=== PATIENT | female | born 1990 | race Caucasian/White ===

== ENCOUNTER 2021-03-03 15:43 | Inpatient (IN) | payer MEDICARE, OTHER ==
[~2021-03-03] VITALS: Ht 165.1 cm; Wt 89.4 kg
[2021-03-03 18:50] VITALS: BP 106/65
[2021-03-03] MEDS ORDERED: ALBUTEROL SULFATE 2.5 MG/0.5 ML NEB SOLUTION NEB PRN (19:45)
[2021-03-03] MEDS ORDERED: IPRATROPIUM BROMIDE 0.5 MG/2.5 ML NEB SOLUTION NEB PRN (19:45)
[2021-03-03] MEDS: SENNA 187 MG TABLET PO SCH (21:00)
[2021-03-03] MEDS ORDERED: FORMOTEROL FUMARATE IH SCH (21:00)
[2021-03-03] MEDS: DOCUSATE SODIUM 250 MG CAPSULE PO SCH (21:00)
[2021-03-03] MEDS: OxyCODONE HCL 10 MG IR TABLET PO PRN (21:03)
[2021-03-03] MEDS: GuaiFENesin SR 600 MG ER TABLET PO SCH (21:16)
[2021-03-03] MEDS: GABAPENTIN 300 MG CAPSULE PO SCH (21:16)
[2021-03-03] MEDS: ALBUTEROL SULFATE 2.5 MG/0.5 ML NEB SOLUTION NEB SCH (21:35)
[2021-03-03] MEDS: IPRATROPIUM BROMIDE 0.5 MG/2.5 ML NEB SOLUTION NEB SCH (21:35)
[2021-03-03 21:42] VITALS: BP 106/65
[2021-03-03 21:53] LABS: COVID AG,FIA SOURCE NASAL SWAB
[2021-03-03] MEDS: ACETAMINOPHEN 500 MG TABLET PO SCH (23:17)
[2021-03-03] MEDS: HEPARIN SODIUM,PORCINE 5,000 UNITS/ML VIAL SQ SCH (23:18)
[2021-03-04] VITALS: BP 124/66
[2021-03-04] MEDS ORDERED: PNEUMOCOCCAL VACCINE POLYVALENT 0.5 ML VIAL [PPSV23] IM. ONE (00:30)
[2021-03-04] MEDS: IPRATROPIUM BROMIDE 0.5 MG/2.5 ML NEB SOLUTION NEB SCH ×4 (01:58→20:04)
[2021-03-04] MEDS: ALBUTEROL SULFATE 2.5 MG/0.5 ML NEB SOLUTION NEB SCH ×4 (01:58→20:05)
[2021-03-04] MEDS: OxyCODONE HCL 10 MG IR TABLET PO PRN ×3 (04:56→16:25)
[2021-03-04] MEDS: ACETAMINOPHEN 500 MG TABLET PO SCH ×4 (05:50→23:33)
[2021-03-04 06:42] LABS: BASOPHILS % (AUTO) 0.1 % (0.0-2.0); EOSINOPHILS % (AUTO) 0.4 % (1.0-6.0); HEMATOCRIT 33.1 % (36-46); HEMOGLOBIN 10.6 g/dL (12.0-16.0); LYMPHOCYTES # (AUTO) 2.3 K/uL (1.0-4.8); LYMPHOCYTES % (AUTO) 17.4 % (22.0-44.0); MEAN CORPUSCULAR HEMOGLOBIN 26.3 pg (26.0-34.0); MEAN CORPUSCULAR HGB CONC 31.9 G/dL (31.0-37.0); MEAN CORPUSCULAR VOLUME 83 fL (80-100); MONOCYTES # (AUTO) 0.9 K/uL (0.1-1.0); MONOCYTES % (AUTO) 6.9 % (2.0-9.0); NEUTROPHILS # (AUTO) 10.2 K/uL (1.8-7.7); NEUTROPHILS % (AUTO) 75.2 % (40.0-70.0); PLATELET COUNT (AUTO) 322 K/uL (150-450); RED BLOOD CELL COUNT(AUTO) 4.01 MIL/uL (4.00-5.20); RED CELL DISTRIBUTION WIDTH 15.5 % (11.5-14.5)
[2021-03-04 06:54] LABS: ALANINE AMINOTRANSFERASE 28 U/L (12-78); ALBUMIN 2.7 g/dL (3.4-5.0); ALKALINE PHOSPHATASE 106 U/L (46-116); ANION GAP 7 mmol/L (8-16); ASPARTATE AMINOTRANSFERASE 18 U/L (15-37); BILIRUBIN,TOTAL 0.4 mg/dL (0.1-1.0); CALCIUM, TOTAL 8.6 mg/dL (8.8-10.5); CARBON DIOXIDE 26 mmol/L (22-29); CHLORIDE 102 mmol/L (98-107); CREATININE 0.52 mg/dL (0.60-1.30); GLOMERULAR FILTR. RATE CALC > 60 mL/min (>60); GLUCOSE,RANDOM 101 mg/dL (70-110); POTASSIUM 4.3 mmol/L (3.5-5.1); SODIUM SERUM 135 mmol/L (136-145); TOTAL PROTEIN, SERUM 6.8 g/dL (6.4-8.2); UREA NITROGEN, BLOOD 14 mg/dL (7-18)
[2021-03-04 08:00] VITALS: BP 112/56
[2021-03-04] MEDS: GABAPENTIN 300 MG CAPSULE PO SCH ×3 (08:42→21:23)
[2021-03-04] MEDS: DOCUSATE SODIUM 250 MG CAPSULE PO SCH ×3 (08:42→21:23)
[2021-03-04] MEDS: MONTELUKAST SODIUM 10 MG TABLET PO SCH (08:42)
[2021-03-04] MEDS: GuaiFENesin SR 600 MG ER TABLET PO SCH ×2 (08:42→21:23)
[2021-03-04] MEDS: HEPARIN SODIUM,PORCINE 5,000 UNITS/ML VIAL SQ SCH ×3 (08:43→23:33)
[2021-03-04] MEDS: IBUPROFEN 600 MG TABLET PO PRN (08:53)
[2021-03-04] MEDS ORDERED: CefTRIAXone SODIUM 1 GM/VIAL IM SCH (09:00)
[2021-03-04] MEDS ORDERED: PredniSONE 20 MG TABLET PO SCH (09:00)
[2021-03-04] MEDS ORDERED: LIDOCAINE/PF 1% 2 ML VIAL IM SCH (09:00)
[2021-03-04 16:01] VITALS: BP 107/61
[2021-03-04] MEDS: SENNA 187 MG TABLET PO SCH (21:23)
[2021-03-05] VITALS: BP 108/65
[2021-03-05] MEDS: IPRATROPIUM BROMIDE 0.5 MG/2.5 ML NEB SOLUTION NEB SCH ×4 (02:02→20:50)
[2021-03-05] MEDS: ALBUTEROL SULFATE 2.5 MG/0.5 ML NEB SOLUTION NEB SCH ×4 (02:03→20:50)
[2021-03-05] MEDS: OxyCODONE HCL 10 MG IR TABLET PO PRN ×2 (04:03→09:31)
[2021-03-05] MEDS: ACETAMINOPHEN 500 MG TABLET PO SCH ×3 (05:50→19:16)
[2021-03-05 07:08] VITALS: BP 126/66
[2021-03-05] MEDS: GuaiFENesin SR 600 MG ER TABLET PO SCH ×2 (08:24→20:38)
[2021-03-05] MEDS: DOCUSATE SODIUM 250 MG CAPSULE PO SCH ×2 (08:24→20:38)
[2021-03-05] MEDS: MONTELUKAST SODIUM 10 MG TABLET PO SCH (08:24)
[2021-03-05] MEDS: GABAPENTIN 300 MG CAPSULE PO SCH ×3 (08:24→20:38)
[2021-03-05] MEDS: PredniSONE 5 MG TABLET PO SCH (08:25)
[2021-03-05] MEDS: HEPARIN SODIUM,PORCINE 5,000 UNITS/ML VIAL SQ SCH ×2 (08:25→15:36)
[2021-03-05] MEDS: LIDOCAINE 5% TRANSDERMAL PATCH TD SCH (12:08)
[2021-03-05 16:01] VITALS: BP 113/72
[2021-03-05] MEDS: SENNA 187 MG TABLET PO SCH (20:38)
[2021-03-05] MEDS: -LIDODERM PATCH NOTE- MISC SCH (20:38)
[2021-03-06] MEDS: MELATONIN 5 MG TABLET PO PRN (00:23)
[2021-03-06] MEDS: ACETAMINOPHEN 500 MG TABLET PO SCH ×4 (00:23→21:07)
[2021-03-06] MEDS: HEPARIN SODIUM,PORCINE 5,000 UNITS/ML VIAL SQ SCH ×4 (00:23→23:28)
[2021-03-06 00:48] VITALS: BP 109/67
[2021-03-06] MEDS: ALBUTEROL SULFATE 2.5 MG/0.5 ML NEB SOLUTION NEB SCH ×4 (02:12→19:58)
[2021-03-06] MEDS: IPRATROPIUM BROMIDE 0.5 MG/2.5 ML NEB SOLUTION NEB SCH ×4 (02:12→19:57)
[2021-03-06] MEDS: OxyCODONE HCL 10 MG IR TABLET PO PRN ×3 (07:24→17:35)
[2021-03-06] MEDS: DOCUSATE SODIUM 250 MG CAPSULE PO SCH ×2 (08:00→21:06)
[2021-03-06] MEDS: GuaiFENesin SR 600 MG ER TABLET PO SCH ×2 (08:01→21:06)
[2021-03-06] MEDS: MONTELUKAST SODIUM 10 MG TABLET PO SCH (08:01)
[2021-03-06] MEDS: GABAPENTIN 300 MG CAPSULE PO SCH ×3 (08:01→21:07)
[2021-03-06] MEDS: LIDOCAINE 5% TRANSDERMAL PATCH TD SCH (08:02)
[2021-03-06] MEDS: PredniSONE 5 MG TABLET PO SCH (08:03)
[2021-03-06 08:55] VITALS: BP 101/63
[2021-03-06 20:04] VITALS: BP 107/59
[2021-03-06] MEDS: -LIDODERM PATCH NOTE- MISC SCH (21:07)
[2021-03-06] MEDS: SENNA 187 MG TABLET PO SCH (21:07)
[2021-03-07] VITALS: BP 103/77
[2021-03-07] MEDS: ACETAMINOPHEN 500 MG TABLET PO SCH ×4 (00:29→18:16)
[2021-03-07] MEDS: ALBUTEROL SULFATE 2.5 MG/0.5 ML NEB SOLUTION NEB SCH ×4 (02:14→20:29)
[2021-03-07] MEDS: IPRATROPIUM BROMIDE 0.5 MG/2.5 ML NEB SOLUTION NEB SCH ×4 (02:14→20:29)
[2021-03-07] MEDS: OxyCODONE HCL 10 MG IR TABLET PO PRN (05:28)
[2021-03-07 06:46] LABS: BASOPHILS % (AUTO) 0.4 % (0.0-2.0); EOSINOPHILS % (AUTO) 3.9 % (1.0-6.0); HEMATOCRIT 33.1 % (36-46); HEMOGLOBIN 10.3 g/dL (12.0-16.0); LYMPHOCYTES # (AUTO) 3.7 K/uL (1.0-4.8); LYMPHOCYTES % (AUTO) 29.7 % (22.0-44.0); MEAN CORPUSCULAR HEMOGLOBIN 25.8 pg (26.0-34.0); MEAN CORPUSCULAR VOLUME 83 fL (80-100); MONOCYTES # (AUTO) 0.6 K/uL (0.1-1.0); MONOCYTES % (AUTO) 5.1 % (2.0-9.0); NEUTROPHILS # (AUTO) 7.6 K/uL (1.8-7.7); NEUTROPHILS % (AUTO) 60.9 % (40.0-70.0); PLATELET COUNT (AUTO) 367 K/uL (150-450); RED BLOOD CELL COUNT(AUTO) 3.97 MIL/uL (4.00-5.20); RED CELL DISTRIBUTION WIDTH 15.4 % (11.5-14.5)
[2021-03-07 06:56] LABS: ANION GAP 5 mmol/L (8-16); CALCIUM, TOTAL 8.3 mg/dL (8.8-10.5); CARBON DIOXIDE 27 mmol/L (22-29); CHLORIDE 103 mmol/L (98-107); CREATININE 0.52 mg/dL (0.60-1.30); GLOMERULAR FILTR. RATE CALC > 60 mL/min (>60); GLUCOSE,RANDOM 87 mg/dL (70-110); POTASSIUM 4.1 mmol/L (3.5-5.1); SODIUM SERUM 135 mmol/L (136-145); UREA NITROGEN, BLOOD 17 mg/dL (7-18)
[2021-03-07 07:41] VITALS: BP 107/55
[2021-03-07] MEDS: GuaiFENesin SR 600 MG ER TABLET PO SCH ×2 (07:55→20:59)
[2021-03-07] MEDS: LIDOCAINE 5% TRANSDERMAL PATCH TD SCH (07:55)
[2021-03-07] MEDS: HEPARIN SODIUM,PORCINE 5,000 UNITS/ML VIAL SQ SCH ×2 (07:55→16:26)
[2021-03-07] MEDS: MONTELUKAST SODIUM 10 MG TABLET PO SCH (07:55)
[2021-03-07] MEDS: DOCUSATE SODIUM 250 MG CAPSULE PO SCH ×2 (07:55→20:58)
[2021-03-07] MEDS: PredniSONE 5 MG TABLET PO SCH (07:56)
[2021-03-07] MEDS: GABAPENTIN 300 MG CAPSULE PO SCH ×3 (07:56→20:59)
[2021-03-07] MEDS: OxyCODONE HCL 10 MG ER TABLET PO SCH (12:36)
[2021-03-07 15:47] VITALS: BP 118/63
[2021-03-07] MEDS: CALCIUM CIT/VITAMIN D3 200 MG-250 UNITS TABLET PO SCH (20:58)
[2021-03-07] MEDS: FAMOTIDINE 20 MG TABLET PO SCH (20:59)
[2021-03-07] MEDS: SENNA 187 MG TABLET PO SCH (20:59)
[2021-03-07] MEDS: -LIDODERM PATCH NOTE- MISC SCH (21:02)
[2021-03-08] VITALS: BP 116/51
[2021-03-08] MEDS: HEPARIN SODIUM,PORCINE 5,000 UNITS/ML VIAL SQ SCH ×3 (00:36→15:38)
[2021-03-08] MEDS: OxyCODONE HCL 10 MG ER TABLET PO SCH ×2 (00:36→12:16)
[2021-03-08] MEDS: ACETAMINOPHEN 500 MG TABLET PO SCH ×4 (00:37→18:23)
[2021-03-08] MEDS: ALBUTEROL SULFATE 2.5 MG/0.5 ML NEB SOLUTION NEB SCH ×4 (02:27→20:08)
[2021-03-08] MEDS: IPRATROPIUM BROMIDE 0.5 MG/2.5 ML NEB SOLUTION NEB SCH ×4 (02:27→20:07)
[2021-03-08] MEDS: OxyCODONE HCL 10 MG IR TABLET PO PRN (04:43)
[2021-03-08 07:20] VITALS: BP 95/51
[2021-03-08] MEDS: LIDOCAINE 5% TRANSDERMAL PATCH TD SCH (07:44)
[2021-03-08] MEDS: DOCUSATE SODIUM 250 MG CAPSULE PO SCH ×2 (07:44→19:54)
[2021-03-08] MEDS: PredniSONE 10 MG TABLET PO SCH (07:45)
[2021-03-08] MEDS: MONTELUKAST SODIUM 10 MG TABLET PO SCH (07:45)
[2021-03-08] MEDS: CALCIUM CIT/VITAMIN D3 200 MG-250 UNITS TABLET PO SCH ×2 (07:45→19:54)
[2021-03-08] MEDS: FAMOTIDINE 20 MG TABLET PO SCH ×2 (07:45→19:54)
[2021-03-08] MEDS: GuaiFENesin SR 600 MG ER TABLET PO SCH ×2 (07:46→19:54)
[2021-03-08] MEDS: GABAPENTIN 300 MG CAPSULE PO SCH ×3 (07:46→19:54)
[2021-03-08 16:23] VITALS: BP 106/59
[2021-03-08] MEDS: SENNA 187 MG TABLET PO SCH (19:54)
[2021-03-08] MEDS: -LIDODERM PATCH NOTE- MISC SCH (21:00)
[2021-03-09 00:30] VITALS: BP 98/57
[2021-03-09] MEDS: OxyCODONE HCL 10 MG ER TABLET PO SCH ×2 (00:37→12:55)
[2021-03-09] MEDS: ACETAMINOPHEN 500 MG TABLET PO SCH ×4 (00:37→18:41)
[2021-03-09] MEDS: HEPARIN SODIUM,PORCINE 5,000 UNITS/ML VIAL SQ SCH ×3 (00:37→15:50)
[2021-03-09] MEDS: ALBUTEROL SULFATE 2.5 MG/0.5 ML NEB SOLUTION NEB SCH ×4 (02:45→19:38)
[2021-03-09] MEDS: IPRATROPIUM BROMIDE 0.5 MG/2.5 ML NEB SOLUTION NEB SCH ×4 (02:45→19:38)
[2021-03-09 07:35] VITALS: BP 95/50
[2021-03-09] MEDS: OxyCODONE HCL 5 MG IR TABLET PO PRN (07:37)
[2021-03-09] MEDS: CALCIUM CIT/VITAMIN D3 200 MG-250 UNITS TABLET PO SCH ×2 (09:02→21:16)
[2021-03-09] MEDS: DOCUSATE SODIUM 250 MG CAPSULE PO SCH ×2 (09:02→21:15)
[2021-03-09] MEDS: GuaiFENesin SR 600 MG ER TABLET PO SCH ×2 (09:03→21:16)
[2021-03-09] MEDS: GABAPENTIN 300 MG CAPSULE PO SCH ×3 (09:03→21:17)
[2021-03-09] MEDS: PredniSONE 10 MG TABLET PO SCH (09:03)
[2021-03-09] MEDS: MONTELUKAST SODIUM 10 MG TABLET PO SCH (09:04)
[2021-03-09] MEDS: LIDOCAINE 5% TRANSDERMAL PATCH TD SCH (09:05)
[2021-03-09] MEDS: FAMOTIDINE 20 MG TABLET PO SCH ×2 (09:06→21:16)
[2021-03-09 16:01] VITALS: BP 101/49
[2021-03-09] MEDS: SENNA 187 MG TABLET PO SCH (21:16)
[2021-03-09] MEDS: -LIDODERM PATCH NOTE- MISC SCH (21:17)
[2021-03-09 23:57] VITALS: BP 109/54
[2021-03-10] MEDS: HEPARIN SODIUM,PORCINE 5,000 UNITS/ML VIAL SQ SCH ×4 (00:01→23:49)
[2021-03-10] MEDS: OxyCODONE HCL 10 MG ER TABLET PO SCH ×2 (00:02→12:17)
[2021-03-10] MEDS: ACETAMINOPHEN 500 MG TABLET PO SCH ×5 (00:02→23:50)
[2021-03-10] MEDS: ALBUTEROL SULFATE 2.5 MG/0.5 ML NEB SOLUTION NEB SCH ×4 (01:52→19:30)
[2021-03-10] MEDS: IPRATROPIUM BROMIDE 0.5 MG/2.5 ML NEB SOLUTION NEB SCH ×4 (01:52→19:30)
[2021-03-10 07:25] LABS: BASOPHILS % (AUTO) 0.3 % (0.0-2.0); EOSINOPHILS % (AUTO) 4.1 % (1.0-6.0); HEMATOCRIT 34.3 % (36-46); HEMOGLOBIN 10.7 g/dL (12.0-16.0); LYMPHOCYTES # (AUTO) 3.3 K/uL (1.0-4.8); LYMPHOCYTES % (AUTO) 25.4 % (22.0-44.0); MEAN CORPUSCULAR HEMOGLOBIN 26.3 pg (26.0-34.0); MEAN CORPUSCULAR HGB CONC 31.3 G/dL (31.0-37.0); MEAN CORPUSCULAR VOLUME 84 fL (80-100); MONOCYTES # (AUTO) 0.6 K/uL (0.1-1.0); MONOCYTES % (AUTO) 4.2 % (2.0-9.0); NEUTROPHILS # (AUTO) 8.6 K/uL (1.8-7.7); PLATELET COUNT (AUTO) 484 K/uL (150-450); RED BLOOD CELL COUNT(AUTO) 4.09 MIL/uL (4.00-5.20); RED CELL DISTRIBUTION WIDTH 16.1 % (11.5-14.5)
[2021-03-10 07:50] LABS: ANION GAP 10 mmol/L (8-16); CALCIUM, TOTAL 8.9 mg/dL (8.8-10.5); CARBON DIOXIDE 29 mmol/L (22-29); CHLORIDE 103 mmol/L (98-107); CREATININE 0.61 mg/dL (0.60-1.30); GLOMERULAR FILTR. RATE CALC > 60 mL/min (>60); GLUCOSE,RANDOM 88 mg/dL (70-110); POTASSIUM 4.5 mmol/L (3.5-5.1); SODIUM SERUM 142 mmol/L (136-145); UREA NITROGEN, BLOOD 20 mg/dL (7-18)
[2021-03-10 07:58] VITALS: BP 103/58
[2021-03-10] MEDS: FAMOTIDINE 20 MG TABLET PO SCH ×2 (08:15→20:11)
[2021-03-10] MEDS: MONTELUKAST SODIUM 10 MG TABLET PO SCH (08:15)
[2021-03-10] MEDS: GABAPENTIN 300 MG CAPSULE PO SCH ×3 (08:15→20:11)
[2021-03-10] MEDS: CALCIUM CIT/VITAMIN D3 200 MG-250 UNITS TABLET PO SCH ×2 (08:16→20:10)
[2021-03-10] MEDS: GuaiFENesin SR 600 MG ER TABLET PO SCH ×2 (08:16→20:13)
[2021-03-10] MEDS: DOCUSATE SODIUM 250 MG CAPSULE PO SCH ×2 (08:16→20:11)
[2021-03-10] MEDS: PredniSONE 10 MG TABLET PO SCH (08:16)
[2021-03-10] MEDS: LIDOCAINE 5% TRANSDERMAL PATCH TD SCH (08:17)
[2021-03-10] MEDS: OxyCODONE HCL 10 MG IR TABLET PO PRN (14:01)
[2021-03-10 16:00] VITALS: BP 114/65
[2021-03-10] MEDS: SENNA 187 MG TABLET PO SCH (20:11)
[2021-03-10] MEDS: -LIDODERM PATCH NOTE- MISC SCH (21:47)
[2021-03-11] VITALS: BP 102/68
[2021-03-11] MEDS: OxyCODONE HCL 10 MG ER TABLET PO SCH ×2 (00:12→12:42)
[2021-03-11] MEDS: IPRATROPIUM BROMIDE 0.5 MG/2.5 ML NEB SOLUTION NEB SCH ×4 (02:05→19:19)
[2021-03-11] MEDS: ALBUTEROL SULFATE 2.5 MG/0.5 ML NEB SOLUTION NEB SCH ×4 (02:05→19:19)
[2021-03-11] MEDS: ACETAMINOPHEN 500 MG TABLET PO SCH ×3 (06:04→18:00)
[2021-03-11 07:27] VITALS: BP 94/54
[2021-03-11] MEDS: OxyCODONE HCL 10 MG IR TABLET PO PRN ×2 (07:39→19:56)
[2021-03-11] MEDS: CALCIUM CIT/VITAMIN D3 200 MG-250 UNITS TABLET PO SCH ×2 (08:33→20:54)
[2021-03-11] MEDS: GuaiFENesin SR 600 MG ER TABLET PO SCH ×2 (08:33→22:34)
[2021-03-11] MEDS: PredniSONE 5 MG TABLET PO SCH (08:33)
[2021-03-11] MEDS: LIDOCAINE 5% TRANSDERMAL PATCH TD SCH (08:33)
[2021-03-11] MEDS: GABAPENTIN 300 MG CAPSULE PO SCH ×3 (08:34→20:54)
[2021-03-11] MEDS: MONTELUKAST SODIUM 10 MG TABLET PO SCH (08:34)
[2021-03-11] MEDS: FAMOTIDINE 20 MG TABLET PO SCH ×2 (08:34→20:54)
[2021-03-11] MEDS: HEPARIN SODIUM,PORCINE 5,000 UNITS/ML VIAL SQ SCH ×2 (08:34→16:06)
[2021-03-11] MEDS: DOCUSATE SODIUM 250 MG CAPSULE PO SCH ×2 (08:34→20:55)
[2021-03-11 18:00] VITALS: BP 94/44
[2021-03-11] MEDS: SENNA 187 MG TABLET PO SCH (20:54)
[2021-03-11] MEDS: -LIDODERM PATCH NOTE- MISC SCH (21:01)
[2021-03-12] VITALS: BP 107/62
[2021-03-12] MEDS: HEPARIN SODIUM,PORCINE 5,000 UNITS/ML VIAL SQ SCH ×3 (00:08→17:02)
[2021-03-12] MEDS: ACETAMINOPHEN 500 MG TABLET PO SCH ×4 (00:08→18:00)
[2021-03-12] MEDS: OxyCODONE HCL 10 MG ER TABLET PO SCH ×2 (00:08→12:24)
[2021-03-12] MEDS: IPRATROPIUM BROMIDE 0.5 MG/2.5 ML NEB SOLUTION NEB SCH ×4 (02:29→19:36)
[2021-03-12] MEDS: ALBUTEROL SULFATE 2.5 MG/0.5 ML NEB SOLUTION NEB SCH ×4 (02:29→19:36)
[2021-03-12] MEDS: LIDOCAINE 5% TRANSDERMAL PATCH TD SCH (08:33)
[2021-03-12] MEDS: GuaiFENesin SR 600 MG ER TABLET PO SCH ×2 (08:34→20:18)
[2021-03-12] MEDS: FAMOTIDINE 20 MG TABLET PO SCH ×2 (08:34→20:19)
[2021-03-12] MEDS: GABAPENTIN 300 MG CAPSULE PO SCH ×3 (08:34→20:19)
[2021-03-12] MEDS: DOCUSATE SODIUM 250 MG CAPSULE PO SCH ×2 (08:34→20:19)
[2021-03-12] MEDS: MONTELUKAST SODIUM 10 MG TABLET PO SCH (08:34)
[2021-03-12] MEDS: PredniSONE 5 MG TABLET PO SCH (08:34)
[2021-03-12] MEDS: CALCIUM CIT/VITAMIN D3 200 MG-250 UNITS TABLET PO SCH ×2 (08:36→20:18)
[2021-03-12 09:42] VITALS: BP 108/59
[2021-03-12] MEDS: OxyCODONE HCL 10 MG IR TABLET PO PRN (09:42)
[2021-03-12 16:01] VITALS: BP 128/60
[2021-03-12 18:59] LABS: APPEARANCE,URINE CLEAR (CLEAR); BILIRUBIN,URINE NEGATIVE (NEGATIVE); GLUCOSE, URINE (UA) NEGATIVE (NEGATIVE); KETONES,URINE NEGATIVE (NEGATIVE); NITRATE,URINE NEGATIVE (NEGATIVE); OCCULT BLOOD,URINE NEGATIVE (NEGATIVE); PH,URINE 6.5 (5.0-8.0); PROTEIN,URINE NEGATIVE (NEGATIVE); UROBILINOGEN,URINE 0.2 mg/dL (<=1.0)
[2021-03-12 19:04] LABS: LEUKOCYTE ESTERASE ,URINE MODERATE (NEGATIVE)
[2021-03-12 19:05] LABS: BACTERIA,URINE Few /HPF (None Seen); RBC,URINE 0-2 /HPF (0-2); SQUAMOUS EPITHELIAL CELL,UR Moderate /LPF (None Seen)
[2021-03-12] MEDS: SENNA 187 MG TABLET PO SCH (20:18)
[2021-03-12] MEDS: -LIDODERM PATCH NOTE- MISC SCH (20:19)
[2021-03-13] MEDS: OxyCODONE HCL 10 MG ER TABLET PO SCH ×2 (00:06→12:42)
[2021-03-13] MEDS: HEPARIN SODIUM,PORCINE 5,000 UNITS/ML VIAL SQ SCH ×3 (00:06→15:46)
[2021-03-13] MEDS: ACETAMINOPHEN 500 MG TABLET PO SCH ×4 (00:07→18:00)
[2021-03-13 00:25] VITALS: BP 114/66
[2021-03-13] MEDS: ALBUTEROL SULFATE 2.5 MG/0.5 ML NEB SOLUTION NEB SCH ×4 (02:29→19:55)
[2021-03-13] MEDS: IPRATROPIUM BROMIDE 0.5 MG/2.5 ML NEB SOLUTION NEB SCH ×4 (02:29→19:56)
[2021-03-13 07:55] VITALS: BP 114/59
[2021-03-13] MEDS: DOCUSATE SODIUM 250 MG CAPSULE PO SCH ×2 (08:09→20:09)
[2021-03-13] MEDS: LIDOCAINE 5% TRANSDERMAL PATCH TD SCH (08:09)
[2021-03-13] MEDS: PredniSONE 5 MG TABLET PO SCH (08:09)
[2021-03-13] MEDS: GABAPENTIN 300 MG CAPSULE PO SCH ×3 (08:09→20:09)
[2021-03-13] MEDS: GuaiFENesin SR 600 MG ER TABLET PO SCH ×2 (08:09→20:09)
[2021-03-13] MEDS: CALCIUM CIT/VITAMIN D3 200 MG-250 UNITS TABLET PO SCH ×2 (08:09→20:09)
[2021-03-13] MEDS: MONTELUKAST SODIUM 10 MG TABLET PO SCH (08:10)
[2021-03-13] MEDS: FAMOTIDINE 20 MG TABLET PO SCH ×2 (08:10→20:09)
[2021-03-13] MEDS: CIPROFLOXACIN HCL 250 MG TABLET PO SCH ×2 (09:14→22:04)
[2021-03-13] MEDS: OxyCODONE HCL 5 MG IR TABLET PO PRN (09:57)
[2021-03-13 17:47] VITALS: BP 122/64
[2021-03-13] MEDS: -LIDODERM PATCH NOTE- MISC SCH (20:09)
[2021-03-13] MEDS: SENNA 187 MG TABLET PO SCH (20:09)
[2021-03-13 20:39] VITALS: BP 123/65
[2021-03-14] MEDS: OxyCODONE HCL 10 MG ER TABLET PO SCH ×2 (00:28→12:02)
[2021-03-14] MEDS: HEPARIN SODIUM,PORCINE 5,000 UNITS/ML VIAL SQ SCH ×3 (00:28→15:49)
[2021-03-14 00:32] VITALS: BP 106/49
[2021-03-14] MEDS: IPRATROPIUM BROMIDE 0.5 MG/2.5 ML NEB SOLUTION NEB SCH ×4 (02:31→19:53)
[2021-03-14] MEDS: ALBUTEROL SULFATE 2.5 MG/0.5 ML NEB SOLUTION NEB SCH ×4 (02:31→19:53)
[2021-03-14] MEDS: OxyCODONE HCL 5 MG IR TABLET PO PRN (05:15)
[2021-03-14 07:26] VITALS: BP 98/64
[2021-03-14] MEDS: FAMOTIDINE 20 MG TABLET PO SCH ×2 (07:35→20:01)
[2021-03-14] MEDS: MONTELUKAST SODIUM 10 MG TABLET PO SCH (07:35)
[2021-03-14] MEDS: CIPROFLOXACIN HCL 250 MG TABLET PO SCH ×2 (07:35→21:56)
[2021-03-14] MEDS: GABAPENTIN 300 MG CAPSULE PO SCH ×3 (07:38→20:01)
[2021-03-14] MEDS: LIDOCAINE 5% TRANSDERMAL PATCH TD SCH (07:38)
[2021-03-14] MEDS: DOCUSATE SODIUM 250 MG CAPSULE PO SCH ×2 (07:38→20:01)
[2021-03-14] MEDS: GuaiFENesin SR 600 MG ER TABLET PO SCH ×2 (07:38→20:01)
[2021-03-14] MEDS ORDERED: ACETAMINOPHEN 325 MG TABLET PO PRN (09:00)
[2021-03-14] MEDS: CALCIUM CIT/VITAMIN D3 200 MG-250 UNITS TABLET PO SCH ×2 (09:48→20:01)
[2021-03-14 17:51] VITALS: BP 101/61
[2021-03-14] MEDS: SENNA 187 MG TABLET PO SCH (20:01)
[2021-03-14] MEDS: -LIDODERM PATCH NOTE- MISC SCH (20:01)
[2021-03-14] MEDS: MICONAZOLE NITRATE 200 MG VAGINAL SUPP [3] VG SCH (20:01)
[2021-03-15] MEDS: OxyCODONE HCL 10 MG ER TABLET PO SCH ×2 (00:11→12:36)
[2021-03-15] MEDS: HEPARIN SODIUM,PORCINE 5,000 UNITS/ML VIAL SQ SCH ×3 (00:11→16:52)
[2021-03-15 00:39] VITALS: BP 95/45
[2021-03-15] MEDS: ALBUTEROL SULFATE 2.5 MG/0.5 ML NEB SOLUTION NEB SCH ×4 (02:07→20:14)
[2021-03-15] MEDS: IPRATROPIUM BROMIDE 0.5 MG/2.5 ML NEB SOLUTION NEB SCH ×4 (02:07→20:14)
[2021-03-15] MEDS ORDERED: DOCU-350 PO (02:10)
[2021-03-15] MEDS ORDERED: MONT-35 PO (02:10)
[2021-03-15] MEDS ORDERED: SENN8.6T90 PO (02:10)
[2021-03-15] MEDS ORDERED: GUAIF600 PO (02:10)
[2021-03-15] MEDS ORDERED: OXYC10TA59 PO (02:10)
[2021-03-15] MEDS ORDERED: FAMO20 PO (02:10)
[2021-03-15] MEDS ORDERED: GABA-1181 PO (02:10)
[2021-03-15] MEDS ORDERED: LIDO700A15 TD (02:10)
[2021-03-15] MEDS ORDERED: CALC-840 PO (02:10)
[2021-03-15 07:04] LABS: BASOPHILS % (AUTO) 0.5 % (0.0-2.0); EOSINOPHILS % (AUTO) 12.3 % (1.0-6.0); HEMOGLOBIN 10.2 g/dL (12.0-16.0); LYMPHOCYTES # (AUTO) 2.3 K/uL (1.0-4.8); MEAN CORPUSCULAR HEMOGLOBIN 26.8 pg (26.0-34.0); MEAN CORPUSCULAR VOLUME 84 fL (80-100); MONOCYTES # (AUTO) 0.6 K/uL (0.1-1.0); MONOCYTES % (AUTO) 6.4 % (2.0-9.0); NEUTROPHILS # (AUTO) 5.9 K/uL (1.8-7.7); NEUTROPHILS % (AUTO) 57.8 % (40.0-70.0); PLATELET COUNT (AUTO) 453 K/uL (150-450); RED BLOOD CELL COUNT(AUTO) 3.83 MIL/uL (4.00-5.20); RED CELL DISTRIBUTION WIDTH 16.4 % (11.5-14.5)
[2021-03-15] MEDS: DOCUSATE SODIUM 250 MG CAPSULE PO SCH ×2 (08:02→21:24)
[2021-03-15] MEDS: CALCIUM CIT/VITAMIN D3 200 MG-250 UNITS TABLET PO SCH ×2 (08:02→21:24)
[2021-03-15] MEDS: GABAPENTIN 300 MG CAPSULE PO SCH ×3 (08:02→21:25)
[2021-03-15] MEDS: GuaiFENesin SR 600 MG ER TABLET PO SCH ×2 (08:02→21:28)
[2021-03-15] MEDS: MONTELUKAST SODIUM 10 MG TABLET PO SCH (08:02)
[2021-03-15] MEDS: FAMOTIDINE 20 MG TABLET PO SCH ×2 (08:03→21:29)
[2021-03-15] MEDS: LIDOCAINE 5% TRANSDERMAL PATCH TD SCH (08:03)
[2021-03-15] MEDS: CIPROFLOXACIN HCL 250 MG TABLET PO SCH ×2 (08:03→22:59)
[2021-03-15 09:01] VITALS: BP 99/62
[2021-03-15 17:13] VITALS: BP 111/59
[2021-03-15] MEDS: -LIDODERM PATCH NOTE- MISC SCH (21:11)
[2021-03-15] MEDS: SENNA 187 MG TABLET PO SCH (21:24)
[2021-03-15] MEDS: MICONAZOLE NITRATE 200 MG VAGINAL SUPP [3] VG SCH (21:28)
[2021-03-15 23:37] VITALS: BP 105/55
[2021-03-16] MEDS: OxyCODONE HCL 10 MG ER TABLET PO SCH ×3 (00:21→23:45)
[2021-03-16] MEDS: HEPARIN SODIUM,PORCINE 5,000 UNITS/ML VIAL SQ SCH ×4 (00:21→23:45)
[2021-03-16] MEDS: IPRATROPIUM BROMIDE 0.5 MG/2.5 ML NEB SOLUTION NEB SCH ×4 (02:13→20:20)
[2021-03-16] MEDS: ALBUTEROL SULFATE 2.5 MG/0.5 ML NEB SOLUTION NEB SCH ×4 (02:13→20:20)
[2021-03-16 08:01] VITALS: BP_SYST 104; BP_DIAS 104; BP_DIAS 65
[2021-03-16] MEDS: DOCUSATE SODIUM 250 MG CAPSULE PO SCH ×2 (08:29→20:50)
[2021-03-16] MEDS: GABAPENTIN 300 MG CAPSULE PO SCH ×3 (08:29→20:50)
[2021-03-16] MEDS: CALCIUM CIT/VITAMIN D3 200 MG-250 UNITS TABLET PO SCH ×2 (08:29→20:50)
[2021-03-16] MEDS: LIDOCAINE 5% TRANSDERMAL PATCH TD SCH (08:29)
[2021-03-16] MEDS: MONTELUKAST SODIUM 10 MG TABLET PO SCH (08:29)
[2021-03-16] MEDS: FAMOTIDINE 20 MG TABLET PO SCH ×2 (08:29→20:49)
[2021-03-16] MEDS: GuaiFENesin SR 600 MG ER TABLET PO SCH ×2 (08:30→20:50)
[2021-03-16] MEDS: CIPROFLOXACIN HCL 250 MG TABLET PO SCH ×2 (09:00→23:53)
[2021-03-16 17:45] VITALS: BP 102/51
[2021-03-16] MEDS: SENNA 187 MG TABLET PO SCH (20:50)
[2021-03-16] MEDS: MICONAZOLE NITRATE 200 MG VAGINAL SUPP [3] VG SCH (20:50)
[2021-03-16] MEDS: -LIDODERM PATCH NOTE- MISC SCH (21:00)
[2021-03-17] VITALS: BP 103/58
[2021-03-17] MEDS: IPRATROPIUM BROMIDE 0.5 MG/2.5 ML NEB SOLUTION NEB SCH ×4 (01:53→19:52)
[2021-03-17] MEDS: ALBUTEROL SULFATE 2.5 MG/0.5 ML NEB SOLUTION NEB SCH ×4 (01:53→19:51)
[2021-03-17] MEDS: IBUPROFEN 600 MG TABLET PO PRN ×3 (02:22→21:04)
[2021-03-17] MEDS: GABAPENTIN 300 MG CAPSULE PO SCH ×3 (07:37→20:42)
[2021-03-17] MEDS: HEPARIN SODIUM,PORCINE 5,000 UNITS/ML VIAL SQ SCH ×2 (07:37→15:12)
[2021-03-17] MEDS: GuaiFENesin SR 600 MG ER TABLET PO SCH ×2 (07:37→21:43)
[2021-03-17] MEDS: MONTELUKAST SODIUM 10 MG TABLET PO SCH (07:37)
[2021-03-17] MEDS: CIPROFLOXACIN HCL 250 MG TABLET PO SCH ×2 (07:37→21:43)
[2021-03-17] MEDS: DOCUSATE SODIUM 250 MG CAPSULE PO SCH ×2 (07:37→20:41)
[2021-03-17] MEDS: FAMOTIDINE 20 MG TABLET PO SCH ×2 (07:37→20:42)
[2021-03-17] MEDS: CALCIUM CIT/VITAMIN D3 200 MG-250 UNITS TABLET PO SCH ×2 (07:40→20:41)
[2021-03-17] MEDS: LIDOCAINE 5% TRANSDERMAL PATCH TD SCH (07:40)
[2021-03-17 09:15] VITALS: BP 104/63
[2021-03-17 16:02] VITALS: BP 106/66
[2021-03-17] MEDS: SENNA 187 MG TABLET PO SCH (20:42)
[2021-03-17] MEDS: MICONAZOLE NITRATE 200 MG VAGINAL SUPP [3] VG SCH (20:45)
[2021-03-17] MEDS: -LIDODERM PATCH NOTE- MISC SCH (21:43)
[2021-03-17] MEDS: MELATONIN 5 MG TABLET PO PRN (22:33)
[2021-03-17] MEDS ORDERED: ASPI325T87 PO (23:37)
[2021-03-17] MEDS ORDERED: OXYC5 PO (23:42)
[2021-03-18] MEDS: HEPARIN SODIUM,PORCINE 5,000 UNITS/ML VIAL SQ SCH ×2 (00:51→08:11)
[2021-03-18 01:45] VITALS: BP 99/58
[2021-03-18] MEDS: OxyCODONE HCL 5 MG IR TABLET PO PRN ×2 (02:04→08:35)
[2021-03-18] MEDS: ALBUTEROL SULFATE 2.5 MG/0.5 ML NEB SOLUTION NEB SCH ×2 (02:34→09:09)
[2021-03-18] MEDS: IPRATROPIUM BROMIDE 0.5 MG/2.5 ML NEB SOLUTION NEB SCH ×2 (02:34→09:09)
[2021-03-18] MEDS: LIDOCAINE 5% TRANSDERMAL PATCH TD SCH (08:10)
[2021-03-18] MEDS: MONTELUKAST SODIUM 10 MG TABLET PO SCH (08:10)
[2021-03-18] MEDS: DOCUSATE SODIUM 250 MG CAPSULE PO SCH (08:11)
[2021-03-18] MEDS: GABAPENTIN 300 MG CAPSULE PO SCH (08:11)
[2021-03-18] MEDS: CALCIUM CIT/VITAMIN D3 200 MG-250 UNITS TABLET PO SCH (08:11)
[2021-03-18] MEDS: GuaiFENesin SR 600 MG ER TABLET PO SCH (08:11)
[2021-03-18] MEDS: FAMOTIDINE 20 MG TABLET PO SCH (08:14)
[2021-03-18 08:35] VITALS: BP 107/66
== END 2021-03-18 10:45 | disposition home or self-care (01) | DRG 552 ==
LOC: 2WR 18:25
PROVIDERS: ADMIT Physical Medicine & Rehabilitation; ATTEND Physical Medicine & Rehabilitation
DX: S32.10XA Unspecified fracture of sacrum, initial encounter for closed fracture (principal); S32.502A Unspecified fracture of left pubis, initial encounter for closed fracture; S32.501A Unspecified fracture of right pubis, initial encounter for closed fracture; E87.1 Hypo-osmolality and hyponatremia; N39.0 Urinary tract infection, site not specified; D64.9 Anemia, unspecified; D72.829 Elevated white blood cell count, unspecified; G47.00 Insomnia, unspecified; G62.9 Polyneuropathy, unspecified; J45.909 Unspecified asthma, uncomplicated; F15.10 Other stimulant abuse, uncomplicated; E66.9 Obesity, unspecified; X58.XXXA Exposure to other specified factors, initial encounter; Z20.822 Contact with and (suspected) exposure to COVID-19; K21.9 Gastro-esophageal reflux disease without esophagitis; K59.00 Constipation, unspecified; Z79.899 Other long term (current) drug therapy; Z68.32 Body mass index [BMI] 32.0-32.9, adult
CPT/HCPCS: 71045; 72170; 80048; 80053; 81001; 85025; 87070; 87081; 87086; 90732; 92523; 93970; 94640; 97110; 97116; 97140; 97150; 97163; 97166; 97530; 97535; 99366; A9575; G0238; J0696; J1644; J3490; 36415-L1; 36415-TC; J7512; J7613; Z7610